=== PATIENT | female | born 1995 | race Caucasian/White ===

== ENCOUNTER → 2020-08-20 | Day surgery (SDC) | payer OTHER ==
[~2020-08-20] MED LIST: IBUPROFEN800 MG PO; PEPCID40 MG PO; ZOFRAN ODT 4 MG4 MG PO; ZOFRAN4 MG PO
[2020-08-20 07:19] LABS: HEMOGLOBIN 13.8 gm/dl (12.3-15.3); RED BLOOD COUNT 4.24 M/UL (4.00-5.10)
== END | disposition home or self-care (01) ==
LOC: OR 06:42
PROVIDERS: Obstetrics & Gynecology
DX: O02.1 Missed abortion (principal); F41.9 Anxiety disorder, unspecified; F48.8 Other specified nonpsychotic mental disorders
CPT/HCPCS: 36415; 81001; 85025; J0690; J1100; J1885; J2001; J2210; J2250; J2405; J2704; J3010; J7120